=== PATIENT | male | born 1985 | race Two or more races ===

== ENCOUNTER 2020-12-26 09:16 | Emergency (ER) | payer OTHER ==
[~2020-12-26] VITALS: Ht 180.3 cm; Wt 150.6 kg
[2020-12-26] MEDS ORDERED: SODIUM CHLORIDE 0.9% 1,000 ML IV ONE (09:45)
[2020-12-26] MEDS ORDERED: KETOROLAC TROMETH 30 MG/ML 1ML VIAL IV ONE (09:45)
[2020-12-26 10:37] VITALS: BP 129/68
[2020-12-26 10:42] LABS: Basophils # (auto) 0 10 ^3/uL (0-0.2); Basophils % (auto) 0.4 % (0.0-2.0); Eosinophils # (auto) 0.1 10 ^3/uL (0-0.8); Eosinophils % (auto) 0.5 % (0.0-7.0); Hematocrit 48.1 % (41.0-53.0); Hemoglobin 16.5 g/dL (13.5-17.5); Lymphocytes # (auto) 3.2 10 ^3/uL (0.4-5.4); Lymphocytes % (auto) 23.9 % (10.0-50.0); Mean Corpuscular Hemoglobin 31.7 pg (28.0-32.0); Mean Corpuscular Hgb Conc. 34.4 g/dL (32.0-36.0); Mean Corpuscular Volume 92.1 fL (80.0-100.0); Monocytes # (auto) 0.9 10 ^3/uL (0-1.3); Monocytes % (auto) 6.5 % (0.0-12.0); Neutrophils # (auto) 9.2 10 ^3/uL (1.6-8.6); Neutrophils % (auto) 68.7 % (37.0-80.0); Nucleated Red Blood Cells % 0.1 %; Red Blood Cells 5.22 10^6/uL (4.5-5.90); Red Cell Distribution Width 13.2 % (11.8-14.3); White Blood Cell 13.4 10^3/uL (4.4-10.8)
[2020-12-26 10:46] LABS: Albumin 3.9 g/dL (3.4-5.0); Anion Gap 6 (5-15); Blood Urea Nitrogen 11 mg/dL (7-18); Calcium 9.1 mg/dL (8.5-10.1); Carbon Dioxide 25 mmol/L (21-32); Chloride 109 mmol/L (98-107); Glucose 95 mg/dL (74-106); Potassium 3.7 mmol/L (3.5-5.1); Sodium 140 mmol/L (136-145)
[2020-12-26 10:51] LABS: Urine Bacteria NONE SEEN /hpf (None Seen); Urine Blood 1+ /uL (Negative); Urine Mucus FEW (None Seen); Urine Specific Gravity 1.026 (1.001-1.035); Urine WBC 3 /hpf (0 - 3)
[2020-12-26 10:52] LABS: Alanine Aminotransferase 57 U/L (16-61); Alkaline Phosphatase 102 U/L (45-117); Aspartate Aminotransferase 38 U/L (15-37); BUN/Creatinine Ratio 12.8; Bilirubin, Total 0.8 mg/dL (0.2-1.0); GFR African American 130 mL/min; GFR Non-African American 108 mL/min; Total Protein 8.2 g/dL (6.4-8.2)
== END 2020-12-26 11:49 | disposition home or self-care (01) ==
LOC: ER 09:16
DX: S33.5XXA Sprain of ligaments of lumbar spine, initial encounter (principal); M48.061 Spinal stenosis, lumbar region without neurogenic claudication; D72.829 Elevated white blood cell count, unspecified; Z88.5 Allergy status to narcotic agent; Z88.8 Allergy status to other drugs, medicaments and biological substances; X58.XXXA Exposure to other specified factors, initial encounter; Y93.89 Activity, other specified; Y92.89 Other specified places as the place of occurrence of the external cause; Y99.8 Other external cause status
CPT/HCPCS: 36415; 71045; 74176; 80053; 81001; 84484; 85025; 96361; 96374; 99285; J1885; J7030

== ENCOUNTER 2021-02-26 13:02 | Emergency (ER) | payer MEDICAID ==
[~2021-02-26] VITALS: Ht 180.3 cm; Wt 151.5 kg
[2021-02-26 16:50] VITALS: BP 141/72
== END 2021-02-26 18:30 | disposition home or self-care (01) ==
LOC: ER 13:02
DX: M79.10 Myalgia, unspecified site (principal); R11.0 Nausea; Z20.822 Contact with and (suspected) exposure to COVID-19
CPT/HCPCS: 36415; 87426

== ENCOUNTER 2021-03-03 08:52 | Inpatient (IN) | payer MEDICAID ==
[~2021-03-03] VITALS: Ht 180.3 cm; Wt 146.0 kg
[2021-03-03] MEDS ORDERED: ACETAMINOPHEN 325 MG TAB PO ONE (09:45)
[2021-03-03 10:26] LABS: Basophils # (auto) 0 10 ^3/uL (0-0.2); Basophils % (auto) 0.4 % (0.0-2.0); Eosinophils # (auto) 0 10 ^3/uL (0-0.8); Hematocrit 47.1 % (41.0-53.0); Hemoglobin 15.9 g/dL (13.5-17.5); Lymphocytes % (auto) 19.1 % (10.0-50.0); Mean Corpuscular Hemoglobin 30.4 pg (28.0-32.0); Mean Corpuscular Hgb Conc. 33.8 g/dL (32.0-36.0); Mean Corpuscular Volume 90.2 fL (80.0-100.0); Monocytes # (auto) 0.6 10 ^3/uL (0-1.3); Monocytes % (auto) 11.6 % (0.0-12.0); Neutrophils # (auto) 3.6 10 ^3/uL (1.6-8.6); Neutrophils % (auto) 68.9 % (37.0-80.0); Nucleated Red Blood Cells % 0.3 %; Red Blood Cells 5.22 10^6/uL (4.5-5.90); Red Cell Distribution Width 13.2 % (11.8-14.3); White Blood Cell 5.3 10^3/uL (4.4-10.8)
[2021-03-03 10:32] LABS: Albumin 3.2 g/dL (3.4-5.0); Calcium 8.2 mg/dL (8.5-10.1); Potassium 3.5 mmol/L (3.5-5.1)
[2021-03-03 10:35] LABS: BUN/Creatinine Ratio 12.7; Bilirubin, Total 0.5 mg/dL (0.2-1.0); Total Protein 7.6 g/dL (6.4-8.2)
[2021-03-03] MEDS ORDERED: ASCORBIC ACID 500 MG TAB PO ONE (11:30)
[2021-03-03] MEDS ORDERED: hydrOXYchloroQUINE SULFATE 200 MG TAB PO ONE (11:30)
[2021-03-03] MEDS ORDERED: DexAMETHasone SOD PHOS 10MG/1ML VIAL INJ IV ONE (11:30)
[2021-03-03] MEDS ORDERED: ZINC SULFATE 220mg CAP or TAB PO ONE (11:30)
[2021-03-03] MEDS ORDERED: ASPirin 81 mg TAB PO ONE (11:30)
[2021-03-03] MEDS ORDERED: CHOLECALCIFEROL (VITD3) 2,000 UNIT CAP/TAB PO ONE (11:30)
[2021-03-03] MEDS ORDERED: AZITHROMYCIN 500MG/ 250ML 250 ML IV ONE (11:30)
[2021-03-03] MEDS ORDERED: cefTRIAXone 1GM/50ML D5W 50 ML IV ONE (11:30)
[2021-03-03] MEDS ORDERED: ONDANSETRON HCL 4 MG/2 ML VIAL IV ONE (12:15)
[2021-03-03] MEDS ORDERED: ONDANSETRON HCL 4 MG/2 ML VIAL ONE (12:18)
[2021-03-03 12:20] LABS: Urine Bacteria NONE SEEN /hpf (None Seen); Urine Blood 1+ /uL (Negative); Urine Mucus FEW (None Seen); Urine WBC 6 /hpf (0 - 3)
[2021-03-03] MEDS ORDERED: NITROGLYCERIN 0.4 MG SL TAB SL PRN (13:30)
[2021-03-03] MEDS ORDERED: REMDESIVIR PER PHARMACY 0 ML IV SCH (13:30)
[2021-03-03] MEDS: PANTOPRAZOLE 40 MG TAB PO SCH (14:03)
[2021-03-03] MEDS: IBUPROFEN 400 MG TAB PO PRN (14:31)
[2021-03-03] MEDS ORDERED: REMDESIVIR 200 MG in NS 210ml LOADING DOSE ADULT IV ONE (16:00)
[2021-03-03] MEDS: ALBUTEROL SULF HFA 90MCG INH 200DOSE IN SCH ×2 (16:39→22:00)
[2021-03-03] MEDS ORDERED: LIDOCAINE 1% (LOCAL ANESTH.) PF 5ml SDV ID ONE (20:00)
[2021-03-03 21:08] VITALS: BP 133/77
[2021-03-03 21:11] LABS: INR 1.01 (0.9-1.15)
[2021-03-03 22:00] VITALS: BP 133/77
[2021-03-03] MEDS: ASCORBIC ACID 500 MG TAB PO SCH (22:10)
[2021-03-03] MEDS: SODIUM CHLOR 0.9% PF (SALINE LOCK) 10ML VIAL/SYR IV SCH (22:10)
[2021-03-03] MEDS: ENOXAPARIN SOD 40 MG/0.4 ML SYRINGE SC SCH (22:10)
[2021-03-04] VITALS (7 sets, daily range): BP systolic 105–134; BP diastolic 55–74
[2021-03-04] MEDS: IBUPROFEN 400 MG TAB PO PRN ×3 (02:38→20:51)
[2021-03-04] MEDS: ALBUTEROL SULF HFA 90MCG INH 200DOSE IN SCH ×3 (06:00→22:14)
[2021-03-04 06:38] LABS: Basophils # (auto) 0 10 ^3/uL (0-0.2); Basophils % (auto) 0.1 % (0.0-2.0); Eosinophils # (auto) 0 10 ^3/uL (0-0.8); Hemoglobin 14.9 g/dL (13.5-17.5); Lymphocytes # (auto) 1.6 10 ^3/uL (0.4-5.4); Lymphocytes % (auto) 28.4 % (10.0-50.0); Mean Corpuscular Hgb Conc. 34.7 g/dL (32.0-36.0); Mean Corpuscular Volume 89.4 fL (80.0-100.0); Monocytes # (auto) 0.8 10 ^3/uL (0-1.3); Monocytes % (auto) 13.4 % (0.0-12.0); Neutrophils # (auto) 3.4 10 ^3/uL (1.6-8.6); Neutrophils % (auto) 58.1 % (37.0-80.0); Nucleated Red Blood Cells % 0.2 %; Red Blood Cells 4.81 10^6/uL (4.5-5.90); Red Cell Distribution Width 13.3 % (11.8-14.3); White Blood Cell 5.8 10^3/uL (4.4-10.8)
[2021-03-04 06:54] LABS: Potassium 3.6 mmol/L (3.5-5.1)
[2021-03-04 06:58] LABS: Albumin 2.9 g/dL (3.4-5.0); BUN/Creatinine Ratio 26.1; Calcium 8.1 mg/dL (8.5-10.1)
[2021-03-04 07:02] LABS: Bilirubin, Total 0.5 mg/dL (0.2-1.0); Total Protein 6.6 g/dL (6.4-8.2)
[2021-03-04] MEDS: PANTOPRAZOLE 40 MG TAB PO SCH (10:07)
[2021-03-04] MEDS: ZINC SULFATE 220mg CAP or TAB PO SCH (10:07)
[2021-03-04] MEDS: SODIUM CHLOR 0.9% PF (SALINE LOCK) 10ML VIAL/SYR IV SCH ×3 (10:07→21:15)
[2021-03-04] MEDS: DexAMETHasone SOD PHOS 10MG/1ML VIAL INJ IV SCH (10:07)
[2021-03-04] MEDS: CHOLECALCIFEROL (VITD3) 2,000 UNIT CAP/TAB PO SCH (10:08)
[2021-03-04] MEDS: ENOXAPARIN SOD 40 MG/0.4 ML SYRINGE SC SCH ×2 (10:08→21:16)
[2021-03-04] MEDS: ASCORBIC ACID 500 MG TAB PO SCH ×2 (10:08→21:15)
[2021-03-04] MEDS: REMDESIVIR 100mg 100 MG in SODIUM CHL 0.9% 230 ML IV SCH (15:53)
[2021-03-04] MEDS: SALINE 0.65 % NASAL SPRAY 45ML BOTTLE EACHNOSTRI SCH ×2 (18:21→22:00)
[2021-03-04] MEDS: SODIUM CHLORIDE 0.9% 1,000 ML IV SCH (18:48)
[2021-03-05] MEDS: IBUPROFEN 400 MG TAB PO PRN (04:24)
[2021-03-05] MEDS: SODIUM CHLORIDE 0.9% 1,000 ML IV SCH (04:45)
[2021-03-05 05:00] VITALS: BP 117/70
[2021-03-05] MEDS: SALINE 0.65 % NASAL SPRAY 45ML BOTTLE EACHNOSTRI SCH ×4 (06:00→21:31)
[2021-03-05 06:08] LABS: Basophils # (auto) 0 10 ^3/uL (0-0.2); Basophils % (auto) 0.3 % (0.0-2.0); Eosinophils # (auto) 0 10 ^3/uL (0-0.8); Hematocrit 42.6 % (41.0-53.0); Hemoglobin 14.8 g/dL (13.5-17.5); Lymphocytes # (auto) 1.6 10 ^3/uL (0.4-5.4); Lymphocytes % (auto) 23.4 % (10.0-50.0); Mean Corpuscular Hemoglobin 31.3 pg (28.0-32.0); Mean Corpuscular Hgb Conc. 34.8 g/dL (32.0-36.0); Mean Corpuscular Volume 89.9 fL (80.0-100.0); Monocytes # (auto) 1.2 10 ^3/uL (0-1.3); Monocytes % (auto) 16.9 % (0.0-12.0); Neutrophils # (auto) 4.1 10 ^3/uL (1.6-8.6); Neutrophils % (auto) 59.4 % (37.0-80.0); Nucleated Red Blood Cells % 0.2 %; Red Blood Cells 4.74 10^6/uL (4.5-5.90); Red Cell Distribution Width 13.2 % (11.8-14.3)
[2021-03-05 06:27] LABS: Calcium 7.6 mg/dL (8.5-10.1); Potassium 3.9 mmol/L (3.5-5.1)
[2021-03-05 06:34] LABS: Albumin 2.8 g/dL (3.4-5.0); BUN/Creatinine Ratio 26.7; Bilirubin, Total 0.4 mg/dL (0.2-1.0); Total Protein 6.4 g/dL (6.4-8.2)
[2021-03-05 09:00] VITALS: BP 118/60
[2021-03-05] MEDS: DexAMETHasone SOD PHOS 10MG/1ML VIAL INJ IV SCH (11:10)
[2021-03-05] MEDS: SODIUM CHLOR 0.9% PF (SALINE LOCK) 10ML VIAL/SYR IV SCH ×2 (11:10→21:31)
[2021-03-05] MEDS: ZINC SULFATE 220mg CAP or TAB PO SCH (11:17)
[2021-03-05] MEDS: PANTOPRAZOLE 40 MG TAB PO SCH (11:17)
[2021-03-05] MEDS: CHOLECALCIFEROL (VITD3) 2,000 UNIT CAP/TAB PO SCH (11:18)
[2021-03-05] MEDS: ASCORBIC ACID 500 MG TAB PO SCH ×2 (11:18→21:31)
[2021-03-05] MEDS: ENOXAPARIN SOD 40 MG/0.4 ML SYRINGE SC SCH ×2 (11:18→21:31)
[2021-03-05 13:00] VITALS: BP 129/75
[2021-03-05] MEDS ORDERED: POLYETHYLENE GLYCOL 17 GM PWDR PO ONE (15:30)
[2021-03-05] MEDS: REMDESIVIR 100mg 100 MG in SODIUM CHL 0.9% 230 ML IV SCH (16:04)
[2021-03-05 17:00] VITALS: BP 139/81
[2021-03-05] MEDS: ALBUTEROL SULF HFA 90MCG INH 200DOSE IN PRN (17:40)
[2021-03-05] MEDS ORDERED: hydrALAZINE HCL 20 MG/ML VL IV PRN (19:30)
[2021-03-05 20:00] VITALS: BP 155/98
[2021-03-05 22:00] VITALS: BP 126/76
[2021-03-06] MEDS: IBUPROFEN 400 MG TAB PO PRN (04:33)
[2021-03-06 05:00] VITALS: BP 120/69
[2021-03-06] MEDS: SALINE 0.65 % NASAL SPRAY 45ML BOTTLE EACHNOSTRI SCH ×4 (05:37→22:41)
[2021-03-06] MEDS: ALBUTEROL SULF HFA 90MCG INH 200DOSE IN PRN ×2 (05:56→19:46)
[2021-03-06 07:05] LABS: Basophils # (auto) 0 10 ^3/uL (0-0.2); Basophils % (auto) 0.3 % (0.0-2.0); Eosinophils # (auto) 0 10 ^3/uL (0-0.8); Hematocrit 43.7 % (41.0-53.0); Hemoglobin 15.2 g/dL (13.5-17.5); Lymphocytes % (auto) 24.5 % (10.0-50.0); Mean Corpuscular Hemoglobin 31.3 pg (28.0-32.0); Mean Corpuscular Hgb Conc. 34.8 g/dL (32.0-36.0); Mean Corpuscular Volume 89.8 fL (80.0-100.0); Monocytes # (auto) 1.5 10 ^3/uL (0-1.3); Monocytes % (auto) 17.7 % (0.0-12.0); Neutrophils # (auto) 4.8 10 ^3/uL (1.6-8.6); Neutrophils % (auto) 57.5 % (37.0-80.0); Nucleated Red Blood Cells % 0.2 %; Red Blood Cells 4.87 10^6/uL (4.5-5.90); Red Cell Distribution Width 13.3 % (11.8-14.3); White Blood Cell 8.3 10^3/uL (4.4-10.8)
[2021-03-06 07:22] LABS: Albumin 2.9 g/dL (3.4-5.0); Calcium 7.8 mg/dL (8.5-10.1)
[2021-03-06 07:29] LABS: BUN/Creatinine Ratio 29.8; Bilirubin, Total 0.5 mg/dL (0.2-1.0); Total Protein 6.4 g/dL (6.4-8.2)
[2021-03-06 09:00] VITALS: BP 117/67
[2021-03-06] MEDS: SODIUM CHLOR 0.9% PF (SALINE LOCK) 10ML VIAL/SYR IV SCH ×2 (10:00→22:41)
[2021-03-06] MEDS: ENOXAPARIN SOD 40 MG/0.4 ML SYRINGE SC SCH ×2 (10:27→22:41)
[2021-03-06] MEDS: DOCUSATE SOD 100 MG CAP PO PRN ×2 (10:27→22:44)
[2021-03-06] MEDS: ZINC SULFATE 220mg CAP or TAB PO SCH (10:27)
[2021-03-06] MEDS: ASCORBIC ACID 500 MG TAB PO SCH ×2 (10:28→22:42)
[2021-03-06] MEDS: PANTOPRAZOLE 40 MG TAB PO SCH (10:28)
[2021-03-06] MEDS: CHOLECALCIFEROL (VITD3) 2,000 UNIT CAP/TAB PO SCH (10:28)
[2021-03-06] MEDS: DexAMETHasone SOD PHOS 10MG/1ML VIAL INJ IV SCH (10:28)
[2021-03-06 13:00] VITALS: BP 133/78
[2021-03-06] MEDS: REMDESIVIR 100mg 100 MG in SODIUM CHL 0.9% 230 ML IV SCH (15:38)
[2021-03-06 17:00] VITALS: BP 126/73
[2021-03-06 22:00] VITALS: BP 128/78
[2021-03-07 05:00] VITALS: BP 119/73
[2021-03-07] MEDS: IBUPROFEN 400 MG TAB PO PRN ×2 (05:29→15:11)
[2021-03-07] MEDS: SALINE 0.65 % NASAL SPRAY 45ML BOTTLE EACHNOSTRI SCH ×3 (05:32→17:30)
[2021-03-07 06:51] LABS: Potassium 4.4 mmol/L (3.5-5.1)
[2021-03-07 06:59] LABS: BUN/Creatinine Ratio 27.4; Bilirubin, Total 0.5 mg/dL (0.2-1.0); Calcium 8.3 mg/dL (8.5-10.1)
[2021-03-07] MEDS: ALBUTEROL SULF HFA 90MCG INH 200DOSE IN PRN (08:51)
[2021-03-07 09:00] VITALS: BP 138/76
[2021-03-07] MEDS: PANTOPRAZOLE 40 MG TAB PO SCH (10:49)
[2021-03-07] MEDS: ZINC SULFATE 220mg CAP or TAB PO SCH (10:49)
[2021-03-07] MEDS: ENOXAPARIN SOD 40 MG/0.4 ML SYRINGE SC SCH (10:49)
[2021-03-07] MEDS: DexAMETHasone SOD PHOS 10MG/1ML VIAL INJ IV SCH (10:49)
[2021-03-07] MEDS: CHOLECALCIFEROL (VITD3) 2,000 UNIT CAP/TAB PO SCH (10:50)
[2021-03-07] MEDS: SODIUM CHLOR 0.9% PF (SALINE LOCK) 10ML VIAL/SYR IV SCH (10:50)
[2021-03-07] MEDS: ASCORBIC ACID 500 MG TAB PO SCH (10:50)
[2021-03-07] MEDS ORDERED: ALBUAER3 IN (12:24)
[2021-03-07] MEDS ORDERED: CHOL1CAP47 PO (12:24)
[2021-03-07] MEDS ORDERED: DEXA6TAB6 PO (12:24)
[2021-03-07] MEDS ORDERED: ZINC220C8 PO (12:24)
[2021-03-07] MEDS ORDERED: ASCO500T11 PO (12:24)
[2021-03-07 13:00] VITALS: BP 113/55
[2021-03-07] MEDS: REMDESIVIR 100mg 100 MG in SODIUM CHL 0.9% 230 ML IV SCH (15:12)
[2021-03-07 15:53] VITALS: BP 113/55
== END 2021-03-07 18:30 | disposition home health service (06) | DRG 137 ==
LOC: ER 08:52 → TELE 13:21 → TELE-EAST 21:09
PROVIDERS: ADMIT Internal Medicine; ATTEND Internal Medicine
PROC: 02HV33Z Insertion of Infusion Device into Superior Vena Cava, Percutaneous Approach (ICD-10-PCS; principal; 2021-03-03)
PROC: XW033E5 Introduction of Remdesivir Anti-infective into Peripheral Vein, Percutaneous Approach, New Technology Group 5 (ICD-10-PCS; 2021-03-03)
PROC: 5A0935A Assistance with Respiratory Ventilation, Less than 24 Consecutive Hours, High Flow/Velocity Cannula (ICD-10-PCS; 2021-03-06)
DX: U07.1 COVID-19 (principal); J96.01 Acute respiratory failure with hypoxia; J12.82 Pneumonia due to coronavirus disease 2019; E44.1 Mild protein-calorie malnutrition; E66.01 Morbid (severe) obesity due to excess calories; Z68.42 Body mass index [BMI] 45.0-49.9, adult; R74.01 Elevation of levels of liver transaminase levels; Z88.6 Allergy status to analgesic agent; Z88.8 Allergy status to other drugs, medicaments and biological substances
CPT/HCPCS: 36415; 36569; 36600; 71045; 71275; 80053; 81001; 82805; 84484; 85025; 85379; 85610; 87426; 93005; 93306; 93970; 94640; 96365; 96367; 96375; G0378; J0696; J1100; J2405

== ENCOUNTER 2021-04-04 10:43 | Emergency (ER) | payer MEDICAID ==
[~2021-04-04] VITALS: Ht 180.3 cm; Wt 149.7 kg
[~2021-04-04 10:43] MED LIST: ALBUAER3 IN; ASCO500T11 PO; CHOL1CAP47 PO; DEXA6TAB6 PO; ZINC220C8 PO
[2021-04-04 12:14] VITALS: BP 122/71
[2021-04-04] MEDS ORDERED: OXYMETAZOLINE HCL 0.05 % NASAL SPRAY 15ML EACHNOSTRI ONE (13:15)
[2021-04-04] MEDS ORDERED: ACET300T4 PO ×2 (13:55→13:58)
== END 2021-04-04 14:28 | disposition home or self-care (01) ==
LOC: ER 10:43
DX: R04.0 Epistaxis (principal); Z79.899 Other long term (current) drug therapy; Z88.5 Allergy status to narcotic agent; Z88.8 Allergy status to other drugs, medicaments and biological substances

== ENCOUNTER 2022-04-19 03:48 | Emergency (ER) | payer MEDICAID ==
[~2022-04-19] VITALS: Ht 180.3 cm; Wt 155.7 kg
[2022-04-19 05:15] LABS: Basophils # (auto) 0.1 10 ^3/uL (0-0.2); Basophils % (auto) 0.6 % (0.0-2.0); Eosinophils # (auto) 0.1 10 ^3/uL (0-0.8); Eosinophils % (auto) 1.3 % (0.0-7.0); Hematocrit 46.6 % (41.0-53.0); Hemoglobin 16.2 g/dL (13.5-17.5); Lymphocytes # (auto) 3.6 10 ^3/uL (0.4-5.4); Lymphocytes % (auto) 32.2 % (10.0-50.0); Mean Corpuscular Hemoglobin 31.6 pg (28.0-32.0); Mean Corpuscular Hgb Conc. 34.7 g/dL (32.0-36.0); Mean Corpuscular Volume 91.3 fL (80.0-100.0); Monocytes # (auto) 0.7 10 ^3/uL (0-1.3); Neutrophils # (auto) 6.7 10 ^3/uL (1.6-8.6); Neutrophils % (auto) 59.9 % (37.0-80.0); Nucleated Red Blood Cells % 0.2 %; Red Cell Distribution Width 13.3 % (11.8-14.3); White Blood Cell 11.2 10^3/uL (4.4-10.8)
[2022-04-19 05:42] LABS: Albumin 3.6 g/dL (3.4-5.0); BUN/Creatinine Ratio 13.2; Calcium 9.1 mg/dL (8.5-10.1)
[2022-04-19 05:45] LABS: Bilirubin, Total 0.4 mg/dL (0.2-1.0); Total Protein 7.6 g/dL (6.4-8.2)
[2022-04-19] MEDS ORDERED: ONDANSETRON ODT 4 MG TAB PO ONE (06:30)
[2022-04-19] MEDS ORDERED: PANT40TA2 PO (08:20)
[2022-04-19] MEDS ORDERED: ONDA-144 PO (08:20)
[2022-04-19 08:41] VITALS: BP 135/76
== END 2022-04-19 08:52 | disposition home or self-care (01) ==
LOC: ER 03:48
DX: K29.00 Acute gastritis without bleeding (principal); D72.829 Elevated white blood cell count, unspecified
CPT/HCPCS: 36415; 74176; 80053; 83690; 85025; 99284; Q0162

== ENCOUNTER 2023-02-21 23:04 | Emergency (ER) | payer MEDICAID ==
[~2023-02-21] VITALS: Ht 180.3 cm; Wt 162.4 kg
[~2023-02-21 23:04] MED LIST changes: +LORA-1121 PO; +ONDA-144 PO; +PANT40TA2 PO
[2023-02-21 23:46] VITALS: BP 141/91
[2023-02-22 00:15] LABS: Basophils # (auto) 0 10 ^3/uL (0-0.2); Basophils % (auto) 0.4 % (0.0-2.0); Eosinophils # (auto) 0.2 10 ^3/uL (0-0.8); Eosinophils % (auto) 1.4 % (0.0-7.0); Hematocrit 48.5 % (41.0-53.0); Hemoglobin 16.3 g/dL (13.5-17.5); Lymphocytes # (auto) 5.1 10 ^3/uL (0.4-5.4); Lymphocytes % (auto) 40.7 % (10.0-50.0); Mean Corpuscular Hgb Conc. 33.5 g/dL (32.0-36.0); Mean Corpuscular Volume 92.6 fL (80.0-100.0); Monocytes # (auto) 1.1 10 ^3/uL (0-1.3); Monocytes % (auto) 8.8 % (0.0-12.0); Neutrophils # (auto) 6.2 10 ^3/uL (1.6-8.6); Neutrophils % (auto) 48.7 % (37.0-80.0); Red Blood Cells 5.24 10^6/uL (4.5-5.90); Red Cell Distribution Width 13.2 % (11.8-14.3); White Blood Cell 12.7 10^3/uL (4.4-10.8)
[2023-02-22] MEDS ORDERED: KETOROLAC TROMETH 30 MG/ML 1ML VIAL IM ONE (00:15)
[2023-02-22 00:28] VITALS: PULSE 81; RESP 20; O2SAT 98
[2023-02-22 00:33] LABS: Urine Bacteria NONE SEEN /hpf (None Seen); Urine Blood TRACE /uL (Negative); Urine Clarity Clear (Clear); Urine Color Yellow (Yellow); Urine Protein, UAD Negative (Negative); Urine Specific Gravity 1.025 (1.001-1.035); Urine Urobilinogen Normal (Negative); Urine WBC 3 /hpf (0 - 3)
[2023-02-22 00:33] LABS: Alanine Aminotransferase 90 U/L (7-40); Albumin 4.6 g/dL (3.2-4.8); Alkaline Phosphatase 164 U/L (46-116); Anion Gap 9 (5-15); Aspartate Aminotransferase 55 U/L (13-40); BUN/Creatinine Ratio 9.7 (10.0-20.0); Blood Urea Nitrogen 7 mg/dL (9-23); Calcium 9.1 mg/dL (8.7-10.4); Carbon Dioxide 23 mmol/L (20-30); Chloride 108 mmol/L (98-107); Glucose 123 mg/dL (74-106); Lipase 38 U/L (12-53); Potassium 3.7 mmol/L (3.5-5.1); Sodium 140 mmol/L (136-145)
[2023-02-22 00:34] LABS: Bilirubin, Total 0.3 mg/dL (0.2-1.0); Total Protein 7.4 g/dL (5.7-8.2)
== END 2023-02-22 04:08 | disposition left against medical advice (07) ==
LOC: ER 23:04
DX: R10.12 Left upper quadrant pain (principal); R19.7 Diarrhea, unspecified; Z88.6 Allergy status to analgesic agent; Z88.5 Allergy status to narcotic agent
CPT/HCPCS: 36415; 74176; 80053; 81001; 83690; 85025; 96372; 99285; J1885

== ENCOUNTER 2023-11-17 20:27 | Emergency (ER) | payer MEDICAID ==
[~2023-11-17] VITALS: Ht 180.3 cm; Wt 165.0 kg
[2023-11-17 20:27] VITALS: BP 132/75; PULSE 106; RESP 20; O2SAT 96
== END 2023-11-18 06:12 | disposition left against medical advice (07) ==
LOC: ER 20:27
DX: J20.9 Acute bronchitis, unspecified (principal); R06.02 Shortness of breath; R05.9 Cough, unspecified; R09.81 Nasal congestion

== ENCOUNTER 2024-03-16 11:18 | Emergency (ER) | payer MEDICAID ==
[~2024-03-16] VITALS: Ht 182.9 cm; Wt 164.8 kg
[2024-03-16] MEDS: KETOROLAC TROMETH 60MG/2ML VIAL IM ONE (12:47)
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
[2024-03-16] MEDS ORDERED: IBUP-1454 PO (13:13)
[2024-03-16] MEDS ORDERED: CYCL-839 PO (13:13)
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
[2024-03-16 13:33] VITALS: BP 138/88; PULSE 88; RESP 18; TEMP 98.3; O2SAT 98
== END 2024-03-16 13:35 | disposition home or self-care (01) ==
LOC: ER 11:18
DX: S46.912A Strain of unspecified muscle, fascia and tendon at shoulder and upper arm level, left arm, initial encounter (principal); Z79.52 Long term (current) use of systemic steroids; Z79.1 Long term (current) use of non-steroidal anti-inflammatories (NSAID); Z79.899 Other long term (current) drug therapy; Z88.5 Allergy status to narcotic agent; V43.52XA Car driver injured in collision with other type car in traffic accident, initial encounter; Y93.89 Activity, other specified; Y92.410 Unspecified street and highway as the place of occurrence of the external cause; Y99.8 Other external cause status
CPT/HCPCS: 73000; 73030; 96372; 99284; J1885

== ENCOUNTER 2025-01-25 04:41 | Emergency (ER) | payer MEDICAID, OTHER ==
[~2025-01-25] VITALS: Ht 180.3 cm; Wt 158.6 kg
[~2025-01-25 04:41] MED LIST changes: +CYCL-839 PO; +IBUP-1454 PO
--- NOTE | 2025-01-25 05:04 | ED.PDOC ---
History of Present Illness HPI Comments 39-year-old, morbidly obese male presents with chief complaint of epigastric abdominal pain and bloody stools. Patient endorses on unprovoked and atraumatic onset of 8/10 abdominal discomfort at 1:00 p.m., yesterday. He reports his stools being bright red. Additional associated symptom of mid back pain. He denies any nausea, vomiting, or further acute symptoms. No endorsement of any permanent medical surgical history. Patient has a family history of diabetes, hypertension, and hyperlipidemia. Chief Complaint: Abdominal Pain Time Seen by MD: 04:55 Primary Care Provider: SUDHEER Reviewed Notes: Nurses Notes, Medications, Allergies (Allergies listed above) Allergies: Coded Allergies: Acetaminophen (Verified Allergy, Unknown, 12/26/20) Codeine (Verified Allergy, Unknown, 06/02/22) Hydrocodone (Verified Allergy, Unknown, 12/26/20) Morphine (Verified Allergy, Unknown, 12/26/20) Home Meds Active Scripts Cyclobenzaprine Hcl (Cyclobenzaprine Hcl) 10 Mg Tab, 10 MG PO BID PRN for 21 Days, #42 TAB 0 Refills Prov:TYRESE MILES 03/16/24 Ibuprofen (Ibuprofen) 600 Mg Tab, 1 TAB PO TID for 30 Days, #90 TAB 0 Refills Prov:TYRESE MILES 03/16/24 Ondansetron (Zofran) 4 Mg Tab, 1 TAB PO Q6HR, #20 TAB Prov:GERMAINE CEVALLOS MD 04/19/22 Pantoprazole Sodium Sesquihydr (Protonix) 40 Mg Tab, 40 MG PO DAILY, #30 TAB Prov:GERMAINE CEVALLOS MD 04/19/22 Lorazepam (ATIVAN TABLET) 0.5 Mg Tb, 1 TAB PO TID PRN for 3 Days, #9 TAB 0 Refills Prov:MESSI STANTON MD 12/20/21 Dexamethasone (Decadron) 6 Mg Tab, 6 MG PO DAILY, #5 TAB Prov:JASWANT CARROLL MD 03/07/21 Zinc Sulfate (Zinc Sulfate) 220 Mg Cap, 220 MG PO DAILY, #5 CAP Prov:JASWANT CARROLL MD 03/07/21 Cholecalciferol (Vitamin D3 Super Strength) 2,000 Unit Cap, 2000 UNIT PO DAILY, #5 CAP Prov:JASWANT CARROLL MD 03/07/21 Ascorbic Acid (VITAMIN C TABLET) 500 Mg Tb, 500 MG PO BID, #10 TAB Prov:JASWANT CARROLL MD 03/07/21 Albuterol Sulfate (VENTOLIN MDI) 90 Mcg Ih, 180 MCG IN TID PRN, #1 INH 1 Refill Prov:JASAWNT CARROLL MD 03/07/21 Dexamethasone (Decadron) 6 Mg Tab, 6 MG PO DAILY, #5 TAB Prov:JASWANT CARROLL MD 03/07/21 Zinc Sulfate (Zinc Sulfate) 220 Mg Cap, 220 MG PO DAILY, #5 CAP Prov:JASWANT CARROLL MD 03/07/21 Cholecalciferol (Vitamin D3 Super Strength) 2,000 Unit Cap, 2000 UNIT PO DAILY, #5 CAP Prov:JASWANT CARROLL MD 03/07/21 Ascorbic Acid (VITAMIN C TABLET) 500 Mg Tb, 500 MG PO BID, #10 TAB Prov:JASWANT CARROLL MD 03/07/21 Albuterol Sulfate (VENTOLIN MDI) 90 Mcg Ih, 180 MCG IN TID PRN, #1 INH 1 Refill Prov:JASWANT CARROLL MD 03/07/21 Information Source: Patient Mode of Arrival: Ambulatory Severity: Moderate Timing: Hours Duration: Since onset Prehospital treatment: None Past Medical History PAST MEDICAL HISTORY: Denies Surgical History: Denies all surgeries Family History Family History: Reviewed,noncontributory to illness, No family hx of Cancer, No family hx of Heart jacinto, No family hx ofKidney jacinto, No family hx of Liver jacinto, No family hx of Lung jacinto, No family hx of Stroke, Family hx of DM, Family hx of HTN Family History (Other): Family history of hyperlipidemia Social History Smoker: Non-Smoker Alcohol: Denies ETOH Use Drugs: Denies Drug Use Lives In: Home Constitutional: denies: chills, diaphoresis, fatigue, fever, malaise, sweats, weakness, others EENTM: denies: blurred vision, double vision, ear bleeding, ear discharge, ear drainage, ear pain, ear ringing, eye pain, eye redness, hearing loss, mouth pain, mouth swelling, nasal discharge, nose bleeding, nose congestion, nose pain, photophobia, tearing, throat pain, throat swelling, voice changes, others Respiratory: denies: cough, hemoptysis, orthopnea, SOB at rest, shortness of breath, SOB with excertion, stridor, wheezing, others Cardiovascular: denies: chest pain, dizzy spells, diaphoresis, Dyspnea on exertion, edema, irregular heart beat, left arm pain, lightheadedness, p alpitations, PND, syncope, others Gastrointestinal: reports: abdominal pain, others (Bloody stools); denies: abdomen distended, blood streaked bowels, constipated, diarrhea, dysphagia, difficulty swallowing, hematemesis, melena, nausea, poor appetite, poor fluid intake, rectal bleeding, rectal pain, vomiting Genitourinary: denies: burning, dysuria, flank pain, frequency, hematuria, incontinence, penile discharge, penile sore, pain, testicle pain, testicle swelling, urgency, others Neurological: denies: dizziness, fainting, headache, left sided numbness, left sided weakness, numbness, paresthesia, pre-existing deficit, right sided numbness, right sided weakness, seizure, speech problems, tingling, tremors, weakness, others Musculoskeletal: reports: back pain; denies: gout, joint pain, joint swelling, muscle pain, muscle stiffness, neck pain, others Integumetry: denies: bruises, change in color, change in hair/nails, dryness, laceration, lesions, lumps, rash, wounds, others Allergic/Immunocompromised: denies: Difficulty Healing, Frequent Infections, Hives, Itching, others Hematologic/Lymphatic: denies: anemia, blood clots, easy bleeding, easy bruising, swollen glands, others Endocrine: denies: excessive hunger, excessive sweating, excessive thirst, excessive urination, flushing, intolerance to cold, intolerance to heat, unexplained weight gain, unexplained weight loss, others Psychiatric: denies: anxiety, bipolar disorder, depression, hopeless, panic disorder, schizophrenia, sleepless, suicidal, others All Other Systems: Reviewed and Negative Physical Exam General Appearance: No Apparent Distress, Obese HEENT: Normal ENT Inspection, Pharynx Normal, TMs Normal Neck: Full Range of Motion, Non-Tender, Normal, Normal Inspection Respiratory: Chest Non-Tender, Lungs Clear, No Accessory Muscle Use, No Respiratory Distress, Normal Breath Sounds Cardiovascular: No Edema, No JVD, No Murmur, No Gallop, Normal Peripheral Pulses, Regular Rate/Rhythm Breast Exam: Deferred Gastrointestinal: No Organomegaly, Non Tender, No Pulsatile Mass, Normal Bowel Sounds, Soft Genitalia: Deferred Pelvic: Deferred Rectal: Deferred Extremities: No calf tenderness, Normal capillary refill, Normal inspection, Normal range of motion, Non-tender, No pedal edema Musculoskeletal : Apperance: Normal Neurologic: 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 Was a procedure done?: No Differential Dx Considerations may include: Lower GI bleed, hemorrhoids, anal fissures, anemia, gastroenteritis, gastritis, viral, among others X-Ray, Labs, Meds, VS Vital Signs Date Time Temp Pulse Resp B/P (MAP) Pulse Ox O2 Delivery O2 Flow Rate FiO2 01/25/25 05:54 98.2 74 16 147/78 (101) 96 98.2 01/25/25 04:43 98.3 75 18 147/67 97 98.3 Lab Test 01/25/25 05:22 Range/Units White Blood Count Pending Red Blood Count Pending Hemoglobin Pending Hematocrit Pending Mean Corpuscular Volume Pending Mean Corpuscular Hemoglobin Pending Mean Corpuscular Hemoglobin Concent Pending Red Cell Distribution Width Pending Platelet Count Pending Mean Platelet Volume Pending Neutrophils (%) (Auto) Pending Lymphocytes (%) (Auto) Pending Monocytes (%) (Auto) Pending Basophils (%) (Auto) Pending Neutrophils # (Auto) Pending Lymphocytes # (Auto) Pending Monocytes # (Auto) Pending Sodium Level Pending Potassium Level Pending Chloride Level Pending Carbon Dioxide Level Pending Anion Gap Pending Blood Urea Nitrogen Pending Creatinine Pending Glomerular Filtration Rate Calc Pending BUN/Creatinine Ratio Pending Serum Glucose Pending Calcium Level Pending Total Bilirubin Pending Aspartate Amino Transferase (AST) Pending Alanine Aminotransferase (ALT) Pending Alkaline Phosphatase Pending Total Protein Pending Albumin Pending Lipase Pending Current Medications Medications (Trade) Dose Ordered Sig/Grant Route Start Time Stop Time Status Last Admin Pantoprazole Sodium (Protonix Tablet) 40 mg ONCE ONCE PO 01/25/25 05:45 01/25/25 05:46 DC 01/25/25 05:51 Ondansetron HCl (Zofran Po) 4 mg ONCE ONCE PO 01/25/25 05:45 01/25/25 05:46 DC 01/25/25 05:51 CT scan of the abdomen and pelvis shows: IMPRESSION: No acute abdominal or pelvic findings. Hepatic steatosis and hepatomegaly. The patient is being given Protonix as well as Zofran p.o. The patient is currently awaiting the CBC as well as the CMP results If the results are within normal range the patient will be discharged The patient is being signed out to Dr. Reid Images Reviewed?: Images reviewed and evaluated by me Time of 1ST Reevaluation: 05:15 Reevaluation 1ST: Unchanged Time of 2ND Reevaluation: 05:38 Reevaluation 2ND: Improved Patient Education/Counseling: Diagnosis, Treatment, Prognosis, Need For Follow Up Family Education/Counseling: No Family Present SEPSIS Sepsis Screen Date sepsis recognized/suspect: Jan 25, 2025 Time Sepsis recognized/suspect: 044 Recent Procedure: No On Antibiotic Therapy: No Respiratory Rate >20: No Heart Rate >90: No Temp<36 C (96.8 F) or >38.3 C: No SBP <90 or MAP <65 mmHG: No New Acute Mental Status Change: No Is the patient on CPAP, BIPAP,: No Physician Orders Complete Blood Count (01/25/25 04:57) Comprehensive Metabolic Panel (01/25/25 04:57) Lipase (01/25/25 04:57) Urinalysis (01/25/25 04:57) Ct Ab Pel Wo Con-No Oral Or Iv (01/25/25 04:57) Vital Signs Date Time Temp Pulse Resp B/P (MAP) Pulse Ox O2 Delivery O2 Flow Rate FiO2 01/25/25 05:54 98.2 74 16 147/78 (101) 96 98.2 01/25/25 04:43 98.3 75 18 147/67 97 98.3 Laboratory Tests Test 01/25/25 05:22 White Blood Count Pending Medications Medications Dose Ordered Sig/Grant Route Start Time Stop Time Status Last Admin Dose Admin Ondansetron HCl 4 mg ONCE ONCE PO 01/25/25 05:45 01/25/25 05:46 DC 01/25/25 05:51 Pantoprazole Sodium 40 mg ONCE ONCE PO 01/25/25 05:45 01/25/25 05:46 DC 01/25/25 05:51 Departure 1 Departure Time of Disposition: 05:38 Impression: Primary Impression: Steatosis Additional Impression: Abdominal pain Qualified Codes: R10.84 - Generalized abdominal pain Disposition: HOME / SELF CARE / HOMELESS Condition: Fair Discharged With: Self Critical Care Note Critical Care Time?: No Stability Stability form required: No Heart Score Heart Score: Heart Score Response (Comments) Value History N/A 0 EKG N/A 0 Age N/A 0 Risk Factors N/A 0 Troponin N/A 0 Total 0 I personally scribed for GERMAINE CEVALLOS MD ([email or web address]) on 01/25/25 at 05:04. Electronically submitted by Ivan Young ([email or web address]). GERMAINE CEVALLOS MD Jan 25, 2025 05:04
--- NOTE | 2025-01-25 05:36 | DVH ---
Exam: CT CT AB PEL WO CON-NO ORAL OR IV History: Pain and blood in his stool Comparison Study: CT CT AB PEL WO CON-NO ORAL OR IV on DOS: 02/22/23, CT ABD PELVIS WO CONTRAST on DOS: 04/19/22, CT ABD PELVIS WO CONTRAST on DOS: 12/26/20 Technique: Multidetector spiral CT of the abdomen was performed from lung bases to pubic symphysis. Imaging was performed without IV contrast. Axial, coronal and sagittal multiplanar reformats were obtained from the axial data set by the technologist. Radiation Dose : 1. Abdomen/Pelvis: CTDIvol 28 mGy, DLP 1686 mGy*cm. Findings: Evaluation of solid organs is limited due to lack of intravenous contrast use. Lung Bases: No acute or significant lung base finding. Normal heart size. No pleural or pericardial effusion. Liver: Hepatic steatosis. Hepatomegaly. Gallbladder and Biliary Tree: Unremarkable Spleen: Unremarkable Pancreas: The pancreas is grossly normal in appearance. Adrenal Glands: Unremarkable Kidneys: Kidneys are grossly normal without calculi or hydronephrosis. Bladder: Grossly unremarkable for degree of distention. Bowel: The stomach is grossly normal in appearance. [id number] volume colonic stool. Small bowel and colon are normal in caliber and distribution. Appendix is unremarkable. Ascites: Absent Lymphadenopathy: No mesenteric, retroperitoneal or periportal lymphadenopathy. Abdominal Wall and Mesentery: Unremarkable. Vasculature: The visualized abdominal aorta is normal in size and caliber. Evaluation of abdominal and pelvic vessels is limited due to lack of intravenous contrast. Pelvic Organs: Unremarkable Musculoskeletal: Degenerative changes of the spine. Degenerative changes of bilateral hips. No aggressive focal bony lesions, acute fractures or dislocation. IMPRESSION: No acute abdominal or pelvic findings. Hepatic steatosis and hepatomegaly. Radiation optimization: All CT scans at this facility use at least one of these dose optimization techniques: automated exposure control mA and/or kV adjustment per patient size (includes targeted exams where dose is matched to clinical indication) or iterative reconstruction.
[2025-01-25 05:49] LABS: Hematocrit 47.1 % (41.0-53.0); Hemoglobin 16.3 g/dL (13.5-17.5); Mean Corpuscular Hemoglobin 32.0 pg (28.0-32.0); Mean Corpuscular Volume 92.5 fL (80.0-100.0); Nucleated Red Blood Cells % 0.1 %
[2025-01-25 05:50] LABS: Albumin 4.2 g/dL (3.2-4.8); Anion Gap 11 (5-15); BUN/Creatinine Ratio 14.1 (10.0-20.0); Bilirubin, Total 0.4 mg/dL (0.2-1.0); Blood Urea Nitrogen 10 mg/dL (9-23); Calcium 9.1 mg/dL (8.7-10.4); Carbon Dioxide 23 mmol/L (20-31); Lipase 39 U/L (12-53); Potassium 4.0 mmol/L (3.5-5.1); Sodium 142 mmol/L (136-145); Total Protein 7.3 g/dL (5.7-8.2)
[2025-01-25] MEDS: PANTOPRAZOLE 40 MG TAB PO ONE (05:51)
[2025-01-25] MEDS: ONDANSETRON ODT 4 MG TAB PO ONE (05:51)
[2025-01-25 05:54] VITALS: BP 147/78; PULSE 74; RESP 16; TEMP 98.2; O2SAT 96
[2025-01-25] MEDS ORDERED: ZOFR4T PO (05:57)
[2025-01-25 06:08] LABS: Alanine Aminotransferase 80 U/L (7-40); Alkaline Phosphatase 131 U/L (46-116); Chloride 108 mmol/L (98-107); Glucose 112 mg/dL (74-106)
[2025-01-25 06:48] LABS: Urine Protein, UAD Negative (Negative)
== END 2025-01-25 06:23 | disposition home or self-care (01) ==
LOC: ER 04:41
DX: R10.13 Epigastric pain (principal); E88.89 Other specified metabolic disorders; Z79.899 Other long term (current) drug therapy; Z88.5 Allergy status to narcotic agent
CPT/HCPCS: 36415; 74176; 80053; 81001; 83690; 85025; 99284; Q0162